=== PATIENT | male | born 1995 ===

== ENCOUNTER → 2019-12-27 15:03 | Outpatient (CLI) | payer BC, SELFPAY ==
--- NOTE | ~2019-12-27 | CT_ITS ---
EXAMINATION: CT brain wo con DATE: 12/27/2019 15:26 INDICATION: Headaches. Dizziness. Blurry vision. TECHNIQUE: Computed tomography (CT) of the head was performed without intravenous contrast. The mA wa s adjusted according to patient size. Iterative reconstruction technique was employed. Exam dose: 59 9.57 mGy-cm total exam DLP. COMPARISON: None FINDINGS: No intracranial mass lesion or hemorrhage or cerebrovascular accident. No midline shift or mass effect. Normal ventricular size. Normal scott-white matter differentiation. No subdural or epidur al hematoma. The orbital contents are unremarkable. Included paranasal sinuses and mastoid air cells are normally developed and aerated. IMPRESSION: Negative Reviewed, dictated and finalized at [facility]. Reviewed, dictated and finalized at [facility]. [employer] IMPRESSION: Negative
== END ==
DX: R51.9 Headache, unspecified (principal)
CPT/HCPCS: 70450